=== PATIENT | male | born 1975 | race Asian ===

== ENCOUNTER 2024-10-06 17:30 | Emergency (ER) | payer BC, MEDICAID, SELFPAY ==
[2024-10-06 17:31] VITALS: BMI 24.3
[2024-10-06 17:32] VITALS: BP 129/83; PULSE 99; RESP 19; TEMP 36.9; O2SAT 99; BMI 24.3
--- NOTE | 2024-10-06 18:05 | PD.EDALLER ---
ED Allergic Reaction RME/HPI General Chief complaint: Allergic Reaction Stated complaint: ALLERGIC RX AFTER EATING SHRIMP Time Seen by Provider: 10/06/24 17:57 Source: patient Arrival date/time: 10/06/24 17:30 48-year-old male with past medical history of asthma presents emergency department complaining of generalized rash to bilateral upper arms and trunk that started about 45 mg minutes ago after eating shrimp. Patient denies any shortness of breath, chest pain, or any other associated symptom. Mode of arrival: ambulatory Limitations: no limitations Related Data Home Medications ?Medication ?Instructions ?Recorded ?Confirmed fexofenadine 180 mg tablet 180 mg PO QDAY 01/31/24 02/01/24 fluticasone fur. 200 mcg-umeclid 1 inh inhalation HS 01/31/24 02/01/24 62.5 mcg-vilant 25 mcg inhalat.powder (Trelegy Ellipta) montelukast 10 mg tablet 10 mg PO QPM 01/31/24 02/01/24 Previous Rx's ?Medication ?Instructions ?Recorded albuterol sulfate 90 mcg/actuation 2 inh inhalation Q6H PRN shortness 01/26/23 breath activated powder inhaler of breath or wheezing #1 ea diphenhydramine HCl 25 mg capsule 25 mg PO TID PRN itching 7 days 10/06/24 (Benadryl) #10 caps prednisone 20 mg tablet 20 mg PO BID 3 days #6 tabs 10/06/24 Allergies Allergy/AdvReac Type Severity Reaction Status Date / Time shrimp Allergy Hives Verified 10/06/24 17:32 Review of Systems Review of Systems Systems Reviewed: All systems reviewed, normal except as documented Constitutional Constitutional: Reports system reviewed and no additional complaints, except as documented, Denies body ache(s), Denies chills and Denies fever(s) Eyes Eyes: Reports system reviewed and no additional complaints, except as documented and Denies change in vision ENT Ears, Nose, Mouth, and Throat: Reports system reviewed and no additional complaints, except as documented, Denies disequilibrium, Denies dizziness, Denies sore throat and Denies vertigo Cardiovascular Cardiovascular: Reports system reviewed and no additional complaints, except as documented, Denies chest pain and Denies dyspnea Respiratory Respiratory: Reports system reviewed and no additional complaints, except as documented, Denies chest congestion, Denies cough and Denies dyspnea Gastrointestinal Gastrointestinal: Reports system reviewed and no additional complaints, except as documented, Denies abdominal pain, Denies nausea and Denies vomiting Musculoskeletal Musculoskeletal: Reports system reviewed and no additional complaints, except as documented, Denies abnormal gait and Denies arthralgias Integumentary/Breasts Skin/Breast: Reports system reviewed and no additional complaints, except as documented, Denies erythema, Reports rash and Denies wounds Neurologic Neurologic: Reports system reviewed and no additional complaints, except as documented, Denies abnormal gait, Denies disequilibrium, Denies dizziness and Denies vertigo Past Medical History Past Medical History NEUROLOGIC: Negative Neurological Disorders or Seizures CARDIAC: Negative Cardiac Disorders or Congestive Heart Failure RESPIRATORY: Positive Asthma and Bronchitis; Negative Chronic Obstructive Pulmonary Disease (COPD) GASTROINTESTINAL: Positive Gastrointestinal Disorders and Gastrointestinal Bleed GENITOURINARY: Negative Genitourinary Disorders or Renal Disease MUSCULOSKELETAL: Negative Musculoskeletal Disorders ENDOCRINE: Negative Endocrine Disorders, Diabetes Mellitus Type 1 or Diabetes Mellitus Type 2 HEMATOLOGIC: Negative Blood Disorders or Sickle Cell Disease OTHER HISTORY: Positive Shingles and Chicken Pox; Negative Hospitalization, Autoimmune Disease, Blood Transfusions, Blood Transfusion Reaction, Anesthesia Reactions or Cancer Family History FAMILY HISTORY: Positive Family Respiratory Disorders; Negative Family Psychiatric Problems, Family Cardiac Disorders, Family Gastrointestinal Problems, Family Cancer, Family Surgery or Family Anesthesia Reaction Social History SMOKING STATUS: Never smoker ED Exam General Limitations: Present no limitations General appearance: Present alert and in no apparent distress Head Head exam: Present atraumatic Eye Eye exam: Present normal appearance, PERRL and EOMI ENT ENT exam: Present normal exam, normal oropharynx and mucous membranes moist Neck Neck exam: Present normal inspection, full ROM and trachea midline Chest Chest inspection: Present normal inspection and symmetric chest wall rise Respiratory Respiratory exam: Present normal lung sounds bilaterally Cardiovascular Cardiovascular exam: Present regular rate, normal rhythm and normal heart sounds Abdominal Exam Abdominal exam: Present soft and normal bowel sounds Extremities Exam Extremities exam: Present normal inspection and full ROM Back Exam Back exam: Present normal inspection and full ROM Neurological Exam Neurological exam: Present alert, oriented X3 and CN II-XII intact Psychiatric Psychiatric exam: Present normal affect and normal mood Skin Skin exam: Present warm, dry, intact and rash Expanded Skin Exam Type of lesion: Present rash Distribution: Present generalized, thorax, abdomen, LUE and RUE Description: Present macular and urticarial Course Quality Measures none Orders Category Date Time Status Dexamethasone Inj [Decadron Inj] Med 10/06/24 18:04 Discontinued 10 mg IM X1 ONE DiphenhydrAMINE [Benadryl] Med 10/06/24 18:04 Discontinued 50 mg PO X1 ONE Famotidine [Pepcid] Med 10/06/24 18:04 Discontinued 40 mg PO X1 ONE Vital Signs Vital signs: Vital Signs Temperature 98.5 F 10/06/24 17:32 Pulse Rate 99 10/06/24 17:32 Respiratory Rate 19 10/06/24 17:32 Blood Pressure 129/83 10/06/24 17:32 Pulse Oximetry (%) 99 10/06/24 17:32 Oxygen Delivery Method Room Air 10/06/24 17:32 9 9% room air with normal limits Allergic Reaction MDM Narrative MDM Narrative:: 48-year-old male with past medical history of asthma presents emergency department complaining of generalized rash to bilateral upper arms and trunk that started about 45 mg minutes ago after eating shrimp. Patient denies any shortness of breath, chest pain, or any other associated symptom. Patient does not appear in any respiratory distress. Patient treated with steroids and antihistamines. Significant improvement in rash was observed after medication and watchful waiting. Patient discharged home on antihistamines and steroids and instructed to stop eating shrimp or shellfish. Instructed patient to return to emergency department for any worsening symptoms or as needed. Patient data External records reviewed:: [facility] previous records Clinical information provided by:: patient Social determinants that could affect healthcare access:: none Patient has the following chronic illnesses:: See chart How is presenting disease/condition affected by chronic disease/condition?: uneffected by Evaluation data The following diagnostics were reviewed and interpreted by me:: other (specify) (N/A) Lab and/or radiology exams considered but not ordered:: Considered but not ordered Interpretation Summary: N/A Medications / Prescriptions Medications or Prescriptions considered but not ordered:: Ordered Medication administrations:: Medication Administration History Discontinued Medications Dexamethasone Sodium Phosphate (Dexamethasone Sod Phos Inj 10 Mg/Ml Vial) 10 mg IM X1 ONE Stop: 10/06/24 18:05 Last Admin: 10/06/24 18:34 Dose: 10 mg Documented By: Diphenhydramine HCl (Diphenhydramine 25 Mg Capsule) 50 mg PO X1 ONE Stop: 10/06/24 18:05 Last Admin: 10/06/24 18:32 Dose: 50 mg Documented By: Famotidine (Famotidine 20 Mg Tablet) 40 mg PO X1 ONE Stop: 10/06/24 18:05 Last Admin: 10/06/24 18:32 Dose: 40 mg Documented By: Given Consultations Consultation(s) initiated? (list below): No Diagnosis Differential Diagnosis allergic reaction: anaphylaxis, allergic reaction, angioedema, contact dermatitis and urticaria Most likely diagnosis given after review of the tests above:: Allergic reaction to shrimp Admission Indicated Admission indicated?: not indicated Admission Request Was there a request for admission?: No Disposition Plan Disposition Plan: Discharge Discharge Attestation Discharge Attestation: The patient and all family members were given an opportunity to ask questions and understood the discharge instructions. Discharge instructions specifically effects, indications for sooner follow up or return to the emergency department, and the expected course of current diagnosis. Patient condition: Stable Discharge Plan Plan Patient Disposition: HOME (Self Care) Disposition Comment: Stable Prescriptions/Referrals Prescriptions/Med Rec: New prednisone 20 mg tablet 20 mg PO BID 3 Days Qty: 6 0RF Taper: Prednisone Taper 20 mg DAILY for 2 Days and 0 Hour 10 mg DAILY for 2 Days and 0 Hour 5 mg DAILY for 7 Days and 0 Hour diphenhydramine HCl [Benadryl] 25 mg capsule 25 mg PO TID PRN (Reason: itching) 7 Days Qty: 10 0RF No Action albuterol sulfate 90 mcg/actuation aerosol powdr breath activated 2 inh inhalation Q6H PRN (Reason: shortness of breath or wheezing) Qty: 1 0RF fexofenadine 180 mg Tablet 180 mg PO QDAY montelukast 10 mg Tablet 10 mg PO QPM Trelegy Ellipta 200-62.5-25 mcg Blister With Device 1 inh INHALATION HS Referrals: Ben Page MD [Primary Care Provider] - In 1 week Problem List Clinical Impression: Allergic reaction Patient/Caregiver Discharge Instructions Discharge Activity: activity as tolerated Education Materials: ED Food Allergy Additional Instructions: Take medication as prescribed. Stop eating shrimp or shellfish. Follow-up with primary care provider. Return to emergency department for any worsening symptoms or as needed. Print Language: Argentine Stand Alone Forms: [employer] Award Info., Patient Portal Info Letter Attestation Attestation The patient was seen by the midlevel practitioner. I, the co-signing physician, was present during the entire ER visit. While I did not physically examine the patient, I was available for consultation as needed.
[2024-10-06] MEDS: FAMOTIDINE 20 MG TABLET 40 MG PO (18:32)
[2024-10-06] MEDS: DiphenhydrAMINE 25 MG CAPSULE 50 MG PO (18:32)
[2024-10-06] MEDS: DEXAMETHASONE SOD PHOS INJ 10 MG/ML VIAL IM (18:34)
== END 2024-10-06 21:59 | disposition home or self-care (01) ==
PROVIDERS: Emergency Provider Emergency Medicine; PCP Family Medicine
DX: T78.1XXA Other adverse food reactions, not elsewhere classified, initial encounter (principal); R21 Rash and other nonspecific skin eruption; X58.XXXA Exposure to other specified factors, initial encounter
CPT/HCPCS: 96372; 99283; J1100; A9270

== ENCOUNTER 2025-04-15 23:20 | Emergency (ER) | payer BC, MEDICAID, SELFPAY ==
[2025-04-15 23:21] VITALS: BMI 25.0
[2025-04-15 23:55] VITALS: BP 118/85; PULSE 96; RESP 17; TEMP 36.8; O2SAT 99
--- NOTE | 2025-04-16 03:11 | PC.NURSE ---
no answer at er lobby or outside er to be seen.
--- NOTE | 2025-04-16 03:22 | PC.NURSE ---
NO ANSWER AT ER LOBBY OR OUTSIDE ER.
== END 2025-04-16 03:23 | disposition left against medical advice (07) ==
LOC: SERX 04-16 03:29
PROVIDERS: Emergency Provider Emergency Medicine
DX: Z53.21 Procedure and treatment not carried out due to patient leaving prior to being seen by health care provider (principal)
CPT/HCPCS: 99281

== ENCOUNTER → 2025-09-29 | Outpatient (CLI) | payer BC, OTHER, MEDICAID, SELFPAY ==
[2025-09-29 10:12] LABS: Collection Type, Urine Clean Catch
[2025-09-29 10:44] LABS: Basophils # (Auto) 0.1 Thou/mm3 (0.0-0.2); Basophils % (Auto) 1 % (0-2.5); Eosinophils # (Auto) 0.4 Thou/mm3 (0.0-0.5); Eosinophils % (Auto) 5 % (0-10); Hematocrit 38.9 % (41.0-53.0); Hemoglobin 12.0 g/dL (13.5-16.0); Immature Granulocytes Auto 0.04 Thou/mm3 (0.00-0.00); Lymphocytes # (Auto) 2.6 Thou/mm3 (1.0-4.8); Lymphocytes % (Auto) 36 % (10-50); Mean Corpuscular HGB Conc 30.8 g/dl (31.0-37.0); Mean Corpuscular Hemoglobin 25.9 pg (25.0-35.0); Mean Corpuscular Volume 84 fL (80-100); Monocytes # (Auto) 0.7 Thou/mm3 (0.0-0.8); Monocytes % (Auto) 9 % (0-12); Neutrophils # (Auto) 3.5 Thou/mm3 (1.8-7.7); Neutrophils % (Auto) 48 % (37-80); Nucleated Red Blood Cell # 0.04 Thou/mm3 (0.00-0.00); Nucleated Red Blood Cell % 1 /100 WBC (0); Platelet Count 235 Thou/mm3 (140-440); RDW Standard Deviation 43.1 fL (35.1-43.9); Red Blood Count 4.63 Miln/mm3 (4.50-5.90); White Blood Count 7.3 Thou/mm3 (3.8-10.6)
[2025-09-29 11:14] LABS: Bacteria,Urine Rare; Bilirubin,Urine Negative (Negative); Blood,Urine Negative (Negative); Clarity,Urine Clear (Clear/Hazy); Color,Urine Yellow (Lt Yel-Yel); Glucose, Urine Negative (Negative); Ketones,Urine Negative (Negative); Leukocyte Esterase,Urine Negative (Negative); Nitrite,Urine Negative (Negative); PH,Urine 6.0 (5.0-7.0); Protein,Urine Negative (Neg - Trace); RBC,Urine < 1 /hpf (0-3); Specific Gravity,Urine 1.019 (1.001-1.035); Squamous Epithelial Cell,Urine < 1 /hpf (0-5); Urobilinogen,Urine Negative mg/dL (0.0-1.0); WBC,Urine < 1 /hpf (0-5)
[2025-09-29 11:16] LABS: Alanine Aminotransferase 27 U/L (10-49); Albumin, Serum 4.7 gm/dL (3.5-5.0); Albumin/Globulin Ratio 1.7 (1.2-2.2); Alkaline Phosphatase 70 U/L (46-116); Anion Gap 11 (7-16); Aspartate Amino Transferase 32 U/L (0-34); BUN/Creatinine Ratio 11 Ratio (12-20); Bilirubin,Total 5.0 mg/dL (0.3-1.2); Blood Urea Nitrogen 11 mg/dL (9-23); Calcium 9.8 mg/dL (8.3-10.6); Calcium (Corrected) 9.8 mg/dL (8.5-10.1); Carbon Dioxide 27.2 mMol/L (20.0-31.0); Chloride 105 mMol/L (98-107); Creatinine (Component) 1.0 mg/dL (0.6-1.3); Globulin 2.7 gm/dL (2.3-3.5); Glucose 69 mg/dL (74-106); Osmolality,Calculated 282 (275-295); Potassium 4.5 mMol/L (3.4-5.1); Sodium 143 mMol/L (136-145); Thyroid Stimulating Hormone 2.24 uIU/mL (0.55-4.78); Total Protein 7.4 gm/dL (5.7-8.2); eGFR > 60 See Note
[2025-09-29 12:37] LABS: Cardiac Risk Estimate 3.3 RATIO (4.0-6.7); Cholesterol 152 mg/dL (132-200); HDL Cholesterol 46 mg/dL (40-60); LDL Cholesterol,Calculated 59 mg/dL (0-130); Triglycerides 234 mg/dL (30-150)
[2025-09-30 09:59] LABS: Misc Send Out* See Sep Rpt
== END | disposition home or self-care (01) ==
LOC: COPL 09:33
PROVIDERS: PCP Family Medicine; Referring Provider Family Medicine; Visit Provider Family Medicine
DX: Z00.00 Encounter for general adult medical examination without abnormal findings (principal)
CPT/HCPCS: 36415; 80053; 80061; 81001; 83036; 84443; 85025